=== PATIENT | male | born 1990 | race African-American/Black ===

== ENCOUNTER 2019-10-07 08:17 | Outpatient (CLI) | payer SELFPAY ==
[2019-10-10 20:50] LABS: SARS-CoV-2 RNA Undetected (Undetected); SARS-CoV-2 Specimen Source Nasopharynx
== END 2019-10-07 08:37 ==
PROVIDERS: PCP Internal Medicine; Visit Provider Nurse Practitioner Family
DX: Z11.59 Encounter for screening for other viral diseases (principal)
CPT/HCPCS: U0003